=== PATIENT | male | born 1985 | race Two or more races ===

== ENCOUNTER 2017-04-23 23:33 | Emergency (ER) | payer OTHER ==
[~2017-04-23] VITALS: Ht 170.2 cm; Wt 72.6 kg
[2017-04-23 23:49] VITALS: BP 158/99
--- NOTE | 2017-04-24 01:56 | NUR ---
PT LEFT WITHOUT BEING SEEN BY MD. PT ELOPED.
== END 2017-04-24 01:59 | disposition left against medical advice (07) ==
LOC: ER 23:45
DX: Z53.21 Procedure and treatment not carried out due to patient leaving prior to being seen by health care provider (principal)
CPT/HCPCS: A4606; Z7610

== ENCOUNTER 2017-05-10 23:21 | Emergency (ER) | payer OTHER ==
[~2017-05-10] VITALS: Ht 170.2 cm; Wt 61.7 kg
--- NOTE | 2017-05-10 23:53 | NUR ---
ER PHYSCIVIRIDIANA AT BEDSIDE
--- NOTE | 2017-05-10 23:53 | NUR ---
LEFT SHOULDER PAIN X 2 WEEKS - NO TRAUMA
[2017-05-11 00:23] LABS: BASOPHILS # (AUTO) 0.1 /CMM (0.0-0.2); BASOPHILS % (AUTO) 0.8 % (0.0-2.0); EOSINOPHILS # (AUTO) 0.2 /CMM (0.0-0.7); EOSINOPHILS % (AUTO) 3.3 % (0.0-6.0); HEMATOCRIT 37 % (39-51); HEMOGLOBIN 12.3 g/dL (13.5-17.5); LYMPHOCYTES # (AUTO) 3.3 /CMM (0.8-4.8); LYMPHOCYTES % (AUTO) 47.6 % (20.0-44.0); MEAN CORPUSCULAR HEMOGLOBIN 30 PG (26.0-33.0); MEAN CORPUSCULAR HGB CONC 33 g/dl (31.0-36.0); MEAN CORPUSCULAR VOLUME 90 fL (80-96); MONOCYTES # (AUTO) 0.6 /CMM (0.1-1.30); MONOCYTES % (AUTO) 8.9 % (2.0-12.0); NEUTROPHILS # (AUTO) 2.7 /CMM (1.8-8.9); NEUTROPHILS % (AUTO) 39.4 % (43.0-81.0); PLATELET COUNT (AUTO) 333 /CMM (150-450); RDW COEFFICIENT OF VARIATION 13.8 (11.5-15.0); RED BLOOD CELL COUNT(AUTO) 4.15 MIL/uL (4.5-6.0); WHITE BLOOD COUNT (AUTO) 6.9 K/uL (4.3-11.0)
[2017-05-11 00:35] LABS: INR 0.9 (0.87-1.13); PROTHROMBIN TIME 9.4 SECS (9.5-12.7)
[2017-05-11 00:39] LABS: CALCIUM, SERUM 8.7 mg/dL (8.5-10.1); CREATININE 0.8 mg/dL (0.6-1.3)
[2017-05-11 00:44] LABS: ALBUMIN 3.7 g/dL (3.4-5.0); BILIRUBIN,TOTAL 0.2 mg/dL (0.2-1.0); TOTAL PROTEIN, SERUM 6.8 g/dL (6.4-8.2)
[2017-05-11 01:21] VITALS: BP 134/82
== END 2017-05-11 01:22 | disposition home or self-care (01) ==
LOC: ER 23:26
DX: S46.911A Strain of unspecified muscle, fascia and tendon at shoulder and upper arm level, right arm, initial encounter (principal); E86.0 Dehydration; G89.29 Other chronic pain; Z98.890 Other specified postprocedural states; X58.XXXA Exposure to other specified factors, initial encounter; Y93.89 Activity, other specified; Y92.89 Other specified places as the place of occurrence of the external cause; Y99.0 Civilian activity done for income or pay
CPT/HCPCS: 36415; 71010-TC; 80048-TC; 80076-TC; 85025-TC; 85730-TC; A4606; Z7610